=== PATIENT | female | born 1970 | race Caucasian/White ===

== ENCOUNTER → 2016-08-08 | Day surgery (SDC) | payer BC ==
[2015-11-23 11:58] VITALS: BMI 22.4
[~2016-08-08] MED LIST: BACITRACIN OINT 28 GM TUBE TOP ONE; CEFAZOLIN 1 GM VIAL ONE; DEXAMETHASONE 4 MG/ML VIAL IV ONE; ESMOLOL 100 MG/10 ML VIAL IV ONE; FENTANYL 100 MCG/2 ML VIAL IV ONE; FENTANYL 100 MCG/2 ML VIAL IV PRN; GLYCOPYRROLATE 1 MG VIAL IM ONE; HYDROCODONE 5 MG/ACETAMIN 325 MG TAB ONE; HYDROmorphone 1 MG INJECTION IV PRN; LABETALOL 20 MG/4 ML SYRINGE IV PRN; LABETALOL 5 MG/ML MDV IV ONE; LIDOCAINE 100 MG PFS IV ONE; MEPERIDINE 25 MG/ML TUBEX IV PRN; METOCLOPRAMIDE 10 MG/2 ML VIAL IV ONE; MIDAZOLAM 2 MG/2 ML VIAL IV ONE; NEOSTIGMINE 1 MG/1 ML (1:1000) INJ 10 ML MDV IM ONE; ONDANSETRON HCL 4 MG ODT TAB PO PRN; ONDANSETRON HCL 4 MG/2 ML VIAL IV ONE; ONDANSETRON HCL 4 MG/2 ML VIAL IV PRN; ONDANSETRON HCL 4 MG/2 ML VIAL ONE; OXYMETAZOLINE 0.05% NASAL SPRAY NAS ONE; PROMETHAZINE 25 MG/ML VIAL ONE; PROPOFOL 200 MG/20 ML VIAL IV ONE; ROCURONIUM 50 MG/5 ML VIAL IV ONE; SCOPOLAMINE TRANSDERMAL PATCH TOP ONE; SUCCINYLCHOLINE 20 MG/1 ML INJ 10 ML MDV IV ONE; hydrALAZINE 20 MG/ML VIAL IV PRN
--- NOTE | 2016-08-08 07:41 | HIM.ANES ---
Anesthesia Evaluation & Plan Diagnoses: CHRONIC SINUSITIS, UNSPECIFIED (08/08/16) Consented Procedure: NASAL SEPTOPLASTY, SUBMUCOSAL RESECTIONING OF INFERIOR TURBINATES AND FUNCTIONAL ENDOSCOPIC SINUS SURGERY - Focused Review of Systems Now: No Cardiac History: Yes: Hx Cardia Arrhythmia (PALPITATIONS), Hx Cardiac Disorders HEENT: Yes: Hx Deviated Septum, Other HEENT Problems Hx Other HEENT Problems: ENVIORNMENTAL ALLERGIES...SINUS PRESSURE Respiratory: Yes: Hx Asthma, Hx Sleep Apnea (MILD DOES NOT REQUIRE MACHINE PER PCP), Hx Snoring No: Hx BiPAP Dependent, Hx CPAP Dependent, Hx Pneumonia Gastrointestinal: Yes: Hx Gastrointestinal Disorders, Hx Colonoscopy (11/2015.. DIVERTICULAR DISEASE) Neurological/Musculoskeletal: Yes: Hx Migraine, Hx Back Pain, Hx Neurological Disorders Psychological: Yes Hx Mental/Emotional Disorders HX Other Psyco/Soc Problems: INSOMNIA Blood/Autoimmune: Yes: Hx Anemia (w/preg only) No: Hx AIDS, Hx Hepatitis (type) Smoking Status: Never smoker Hx Stress Test (date): Yes (2011 NO ISCHEMIA) Surgical History: Yes: Cholecystectomy (08/2006) Other Surgical History: NOSE LESION REMOVED 2013 - Focused Physical Exam NPO since: 08/07/16 2100 Mallampati: Class II Thyromental Distance: Greater than 3 Neck: Full Range of Motion Dental: Normal - no significant findings Cardiovascular/Chest: Normal Respiratory: Lungs clear Any problems with anesthesia, including nausea and vomiting?: Yes (NAUSEA... DIFFICULTY URINATING) Any relatives with a history of Malignant Hyperthermia?: No Beta Vikash given (if appropriate): N/A Does the patient have a history of Motion Sickness-: Yes Other: PT/PTT/INR/ Urine Test Neg (NEGATIVE) 08/08/16 06:55 Allergies Allergy/AdvReac Type Severity Reaction Status Date / Time Sulfa (Sulfonamide Allergy Unknown Hives* Verified 08/08/16 07:09 Antibiotics) [Sulfa(Sulfonamide Antibiotics)] albuterol Allergy Hypertensio Verified 08/08/16 07:09 n gluten Allergy Diarrhea Verified 08/08/16 07:09 mushroom Allergy Anaphylaxis Verified 08/08/16 07:09 * Home Medications Medication Instructions Recorded Last Taken Type Diclofenac Potassium [Cambia] 50 mg PO DAILY PRN 11/19/15 2 Weeks Ago History Eszopiclone 2 mg PO HS PRN 11/19/15 11/16/15 History Famotidine 40 mg PO HS 11/19/15 08/07/16 History Magnesium Oxide [Magnesium] 500 mg PO DAILY 11/19/15 08/07/16 History Metoclopramide HCl 10 mg PO Q6 PRN 11/19/15 2 Weeks Ago History Multivitamin [Multivitamins] 1 cap PO DAILY 11/19/15 08/07/16 History Ascorbic Acid [Vitamin C] 500 mg PO DAILY 08/07/16 08/07/16 History Diphenhydramine HCl [Benadryl 25 mg PO HS 08/07/16 08/07/16 History Allergy] Eletriptan HBr [Relpax] 40 mg PO DAILY PRN 08/07/16 2 Weeks Ago History Fexofenadine HCl [[place]ison] 180 mg PO DAILY 08/07/16 08/08/16 05:30 History Levalbuterol [Xopenex Hfa] 15 gm IH Q6 PRN 08/07/16 Unknown History Height and Weight Patient's height 5 ft 4 in Patient's weight 59.421 kg BMI 22.4 Vital Signs Temperature 97.8 F 08/08/16 07:09 Pulse Rate 112 08/08/16 07:09 Respiratory Rate 16 08/08/16 07:09 Blood Pressure 160/85 08/08/16 07:09 Pulse Oxygen Saturation 100 08/08/16 07:09 - Anesthetic Plan Anesthesia Type: General ASA Class: 2 -: I have examined this patient and reviewed the medical record. The patient has been assessed prior to anesthesia. Risks and benefits of anesthesia and anesthetic technique options have been discussed and all questions answered. The patient accepts the risk and desires me to proceed with the planned anesthetic.
--- NOTE | 2016-08-08 10:26 | HIMOPRPT ---
DATE OF PROCEDURE: 08/08/16 PREOPERATIVE DIAGNOSES: 1. Deviated nasal septum, left. 2. Inferior turbinate hypertrophy, bilateral. 3. Nasal airway obstruction, bilateral. 4. Chronic and recurrent pansinusitis, bilateral. 5. Recurrent nasofrontal sinusitis, bilateral. 6. Recurrent ethmoid sinusitis, bilateral. Seven recurrent maxillary sinusitis, bilateral. POSTOPERATIVE DIAGNOSES: 1. Deviated nasal septum, left. 2. Inferior turbinate hypertrophy, bilateral. 3. Nasal airway obstruction, bilateral. 4. Chronic and recurrent pansinusitis, bilateral. 5. Recurrent nasofrontal sinusitis, bilateral. 6. Recurrent ethmoid sinusitis, bilateral. Seven recurrent maxillary sinusitis, bilateral. PROCEDURE: 1. Nasal septoplasty. 2. Submucosal resectioning of inferior turbinates, bilateral. 3. Endoscopic sinus surgery (bilateral nasofrontal sinusotomies with balloon sinuplasty, bilateral anterior and posterior ethmoidectomies, bilateral maxillary antrostomies with balloon sinuplasty and endoscopic tissue debridement ). SURGEON: Kennedy Samuels DO. ANESTHESIA: General endotracheal with 1% lidocaine in 1:100,000 epinephrine local injection and 0.05% oxymetazoline topical. ESTIMATED BLOOD LOSS: 100 mL. COMPLICATIONS: None. SPECIMEN REMOVED: 1. Nasal septal cartilage and bone. 2. Nasal and sinus contents. ANESTHESIOLOGIST: Dr. Tracy. ASSISTANTS: None. WOUND CLASSIFICATION: II. FLUID REPLACEMENT: Approximately 2200 mL lactated Ringer's. DRAINS: None. PACKINGS: 1. Surgicel. 2. Telfa gauze. OPERATIVE FINDINGS: The nasal septum was significantly deviated to the left, involving both cartilaginous and bony septum. A prominent nasal septal spur protruding to the left nasal cavity was also noted. The bony nasal septum was in contact with the left inferior turbinates. Bilateral inferior turbinates were moderately to significantly hypertrophic and boggy, further adding to the nasal congestion. Bilateral infundibula and ostiomeatal units were stenotic and narrowed, secondary to slightly lateralized middle turbinates and mucosal thickening. The nasofrontal recess mucosa was diffusely edematous. Mucosal thickening was also noted throughout the ethmoidal sinus regions. No nasal polyps or nasal masses were noted. INDICATIONS: This patient is a 46-year-old female who was referred to our office for evaluation of chronic nasal and sinus congestion and pressure. She has been treated for chronic and recurrent episodes of sinusitis, along with allergic rhinitis, dating back to 2013. She uses topical nasal steroid sprays and nasal saline daily. The patient also takes oral decongestants and antihistamines. She has been treated with multiple rounds of oral antibiotics. His symptoms and recurrent sinusitis has been refractory to maximal medical management. Examination in the office including rigid nasal endoscopy, demonstrated significant nasal septal deviation to the left nasal cavity, with bilateral inferior turbinate hypertrophy, which further as to her nasal congestion. CT scan demonstrated narrowing of bilateral nasofrontal recesses, narrowing of bilateral OMC's and infundibula, and diffuse mucoperiosteal thickening to bilateral frontal, bilateral ethmoid sinuses, and bilateral maxillary sinuses. Options were reviewed and discussed with the patient. She is here today for elective nasal and sinus surgeries. DESCRIPTION OF THE PROCEDURE: All risks, benefits, potential complications, and alternatives were reviewed and discussed with the patient. The risk of CSF leak and rhinorrhea along with orbital injury were also discussed. Patient is fully aware that with sinus surgery, she may require future revision endoscopic sinus surgeries. All of the patient's questions and concerns were fully answered and addressed, consent was signed and charted. The patient was identified in the preoperative holding area and brought to the operating room and placed on the operating table in supine position. General endotracheal anesthesia was administered by the anesthesiologist. Once the airway was secured, the patient was then placed in a semi-Vallecillo's position. The patient was then prepped and draped in the usual fashion as appropriate for nasal and sinus surgery. The nasal septum was infiltrated with approximately 10 mL of 1% lidocaine in 1: 100,000 epinephrine local injection. Approximately 2-3 min. was allowed to elapse. A #15 blade was then used to make a left hemitransfixion incision. This incision was carried down to the caudal cartilaginous septum. A [place] elevator was then used to elevate a mucoperichondrial flap. This flap was extended superiorly, posteriorly as well as inferiorly using a [place] elevator. A 3-4 mm strip of cartilaginous septum was then resected off of the underlying bony maxillary crest and spur. A vertical incision through the cartilage was made just anterior to the starting point of the septal deviation. Posterior to this vertical incision, mucoperichondrial flap was then elevated. Rupesh forceps was then used to resect the deviated cartilaginous septum. The [place] elevator was now used to elevate mucoperiosteal flaps posterior to the bony- cartilaginous junction. Rupesh forceps were then used to resect the deviated bony septum. Mucoperiosteal flaps were then elevated lateral to the maxillary crest. This crest had a spur that protruded to the left nasal cavity. A 4 mm septal chisel was then used to resect the maxillary spur. Suction Bovie cautery was performed to control bleeding from the maxillary crest. The mucoperichondrial flaps were then reapproximated with 4-0 plain gut suture in a continuously running vertical mattress whipstitch. The hemitransfixion incision was then reapproximated with 5-0 chromic in a simple interrupted manner. Each nasal cavity was now copiously irrigated with saline. The saline and some clots and secretions were then suctioned away. Each inferior turbinate was now infiltrated with approximately 3 mL of 1% lidocaine in 1:100,000 epinephrine local injection. Approximately 2-3 minutes was allowed to elapse. A #15 blade was then used to make a stab incision to the anterior face of the inferior turbinates. A [place] elevator was now used to elevate a submucosal tunnel to the inferior turbinates. The ArthroCare Turbinator Coblation Wand was then used to submucosally coblate and resect the inferior turbinates. Two passes with the Coblator were performed to each inferior turbinate. The inferior turbinates were then medialized and infractured using a [place] elevator and then lateralized and outfractured using a Hernandez bar. The anterior cut edges of the inferior turbinates were then coagulated using the Coblation device. The nasal cavities were then copiously irrigated with saline again. The saline and some blood and clots were then suctioned away. Each nasal cavity was now packed with cotton pledgets soaked with 0.05% oxymetazoline for several minutes. The 3D [place] stereotactic image guidance was then calibrated. The cotton pledgets from the left nasal cavity was then removed. The 0-degree endoscope was then placed in the left nasal cavity. A [place] elevator was used to medialized the middle turbinate. The balloon sinuplasty device was placed at the nasofrontal recess. The lighted guidewire was advanced until transillumination was noted across the left forehead. The balloon was then advanced over the guidewire until the appropriate marking was lined up. The balloon was then inflated to a pressure of 12 cm of water. This balloon was then deflated and removed from the nasofrontal recess, along with the lighted guidewire. The lighted guidewire was then placed at the lower left maxillary ostium. The guidewire was advanced until transillumination was noted across the cheek. The balloon was then advanced over the guidewire and inflated to a pressure of 12 cm of water once appropriately placed. This balloon was then deflated and removed from the nasal cavity along with the device and guidewire. An ostial seeker was then used to medialized the superior aspect of the uncinate process up-biting [place]akes[place] and 4.8 mm shaver was then used to resect the remaining superior uncinate process, as well as further enlarging the antrostomy. A straight and up-biting [place] was used to resect the ethmoid bulla as well as several posterior ethmoidal cells. The 4.8 mm shaver was used to further debride some of the inflamed ethmoidal sinuses. The nasal cavity and sinus were irrigated with saline. The saline, clots, and old blood was suctioned away. Cotton pledgets with fresh 0.05% oxymetazoline were then packed in the ethmoidal sinus region and nasal cavity. The 0-degree endoscope was then placed in the right nasal cavity. A [place] elevator was used to medialized the middle turbinate. The balloon sinuplasty device was placed at the nasofrontal recess. The lighted guidewire was advanced until transillumination was noted across the right forehead. The balloon was then advanced over the guidewire until the appropriate marking was lined up. The balloon was then inflated to a pressure of 12 cm of water. This balloon was then deflated and removed from the nasofrontal recess, along with the lighted guidewire. The lighted guidewire was then placed at the lower right maxillary ostium. The guidewire was advanced until transillumination was noted across the cheek. The balloon was then advanced over the guidewire and inflated to a pressure of 12 cm of water once appropriately placed. This balloon was then deflated and removed from the nasal cavity along with the device and guidewire. An ostial seeker was then used to medialized the superior aspect of the uncinate process up-biting [place]akes[place] and 4.8 mm shaver was then used to resect the remaining superior uncinate process, as well as further enlarging the antrostomy. A straight and up-biting [place] was used to resect the ethmoid bulla as well as several posterior ethmoidal cells. The 4.8 mm shaver was used to further debride some of the inflamed ethmoidal sinuses. The nasal cavity and sinus were irrigated with saline. The saline, clots, and old blood was suctioned away. Cotton pledgets with fresh 0.05% oxymetazoline were then packed in the ethmoidal sinus region and nasal cavity. The cotton pledgets from the left nasal cavity were now removed. Surgicel packing with bacitracin ointment was then used to pack the ethmoidal sinus region. Telfa gauze coated with bacitracin ointment was then used to pack the left nasal cavity. The cotton pledgets from the right nasal cavity were now removed. Surgicel packing with bacitracin ointment coating was used to pack the ethmoidal sinus region. The nasal cavity on the right side was then packed with Telfa gauze coated with bacitracin ointment. The anterior nasal tip was cleaned and dried. A drip pad was then placed. The oral cavity and oropharynx were suctioned away of any clots and secretions using the Yankauer suction. The patient tolerated the procedure. There were no complications. All of our counts were correct at the end of the case. A formal time-out was performed prior to the start of surgery. The patient was subsequently awakened and extubated by the anesthesiologist and brought out to the recovery area in satisfactory condition.
[2016-08-08 11:59] VITALS: TEMP 97.8
[2016-08-08 12:46] VITALS: PULSE 98
[2016-08-08 13:59] VITALS: BP 139/76
--- NOTE | 2016-08-08 13:59 | SC.ANESPOS ---
Post-Anesthesia Note LOC: Fully Awake Post-Anesthesia Assessment: Awake, Returned to Baseline, Hemodynamically Stable , Pain Control Adequate Phase I & II Recovery Complete: Yes Apparent Anesthesia Complication: No : N PACU Discharge Time: 10:55 - Vital Signs Blood Pressure: 139/76 Pulse: 98 Resp Rate: 18 O2 Sat: 99 Temp: 97.8 F - Comments Anesthesia Discharge Time Report Time 10:55
== END ==
LOC: SDC 06:47
PROVIDERS: ATTEND Otolaryngology Facial Plastic Surgery
PROC: 09BR4ZZ Excision of Left Maxillary Sinus, Percutaneous Endoscopic Approach (ICD-10-PCS; 2016-08-08)
PROC: 09NS4ZZ Release Right Frontal Sinus, Percutaneous Endoscopic Approach (ICD-10-PCS; 2016-08-08)
PROC: 09NT4ZZ Release Left Frontal Sinus, Percutaneous Endoscopic Approach (ICD-10-PCS; 2016-08-08)
PROC: 09BU4ZZ Excision of Right Ethmoid Sinus, Percutaneous Endoscopic Approach (ICD-10-PCS; 2016-08-08)
PROC: 09BV4ZZ Excision of Left Ethmoid Sinus, Percutaneous Endoscopic Approach (ICD-10-PCS; 2016-08-08)
PROC: 09BM0ZZ Excision of Nasal Septum, Open Approach (ICD-10-PCS; principal; 2016-08-08 07:50)
PROC: 09BQ4ZZ Excision of Right Maxillary Sinus, Percutaneous Endoscopic Approach (ICD-10-PCS; 2016-08-08 07:50)
DX: J34.2 Deviated nasal septum (principal); J34.3 Hypertrophy of nasal turbinates; J32.1 Chronic frontal sinusitis; J32.2 Chronic ethmoidal sinusitis; J32.0 Chronic maxillary sinusitis; J45.909 Unspecified asthma, uncomplicated; G43.909 Migraine, unspecified, not intractable, without status migrainosus; G47.30 Sleep apnea, unspecified; G47.00 Insomnia, unspecified; Z79.899 Other long term (current) drug therapy; Z85.828 Personal history of other malignant neoplasm of skin
CPT/HCPCS: 30140; 30520; 31254; 31267; 31296; 81025; J0330; J0690; J1100; J2001; J2250; J2405; J2550; J2710; J2765; J3010; J3490